=== PATIENT | male | born 1995 | race Caucasian/White ===

== ENCOUNTER 2017-11-04 12:31 | Emergency (ER) | payer OTHER ==
[~2017-11-04] VITALS: Ht 167.6 cm; Wt 69.5 kg
[2017-11-04] MEDS ORDERED: ULTRAM50 MG PO (14:02)
[2017-11-04 14:18] VITALS: BP 124/78
== END 2017-11-04 14:20 | disposition home or self-care (01) ==
LOC: EME 12:31
DX: S90.32XA Contusion of left foot, initial encounter (principal); S90.31XA Contusion of right foot, initial encounter; V00.131A Fall from skateboard, initial encounter; Y93.51 Activity, roller skating (inline) and skateboarding
CPT/HCPCS: 72100; 73610; 73630; 99281; 99285